=== PATIENT | female | born 1985 | race African-American/Black ===

== ENCOUNTER 2020-08-12 20:43 | Emergency (ER) | payer MEDICAID ==
[~2020-08-12] VITALS: Ht 160 cm; Wt 63.5 kg
[2020-08-12] MEDS ORDERED: MECLIZINE HCL 25 MG TABLET PO ONE (21:15)
[2020-08-12] MEDS ORDERED: MECLIZINE HCL 25 MG TABLET ONE (21:17)
[2020-08-12 21:55] VITALS: BP 130/75
== END 2020-08-12 21:57 | disposition home or self-care (01) ==
LOC: ER 20:43
DX: R42 Dizziness and giddiness (principal)
CPT/HCPCS: A4663; J8597

== ENCOUNTER 2022-02-05 02:48 | Emergency (ER) | payer MEDICAID ==
[~2022-02-05] VITALS: Ht 160 cm; Wt 65.8 kg
--- NOTE | 2022-02-05 03:00 | NUR ---
pt ambualted to room 5 c/o cough and h/a for 7 days.
--- NOTE | 2022-02-05 03:03 | NUR ---
Dr. Carvajal at bedside for MSE.
[2022-02-05] MEDS ORDERED: GUAIFENESIN/CODEINE 5 ML LIQUID UDC PO ONE (03:15)
[2022-02-05] MEDS ORDERED: GUAIFENESIN/CODEINE 5 ML LIQUID UDC ONE (03:16)
[2022-02-05] MEDS ORDERED: AZIT250T PO ×2 (03:36→03:44)
[2022-02-05] MEDS ORDERED: PRED20TA PO ×3 (03:36→03:48)
[2022-02-05] MEDS ORDERED: ZOLP5TAB2 PO ×3 (03:36→03:48)
[2022-02-05] MEDS ORDERED: CODE10LI PO ×3 (03:36→03:48)
[2022-02-05] MEDS ORDERED: AZIT250T13 PO (03:48)
[2022-02-05 03:59] VITALS: BP 133/80
--- NOTE | 2022-02-05 03:59 | NUR ---
Patient discharged to home in stable condition. Written and verbal after care instructions given. Patient verbalizes understanding of instructions. Stressed follow up or return to ER for worsening s/s.
== END 2022-02-05 04:00 | disposition home or self-care (01) ==
LOC: ER 02:55
DX: J02.9 Acute pharyngitis, unspecified (principal); J40 Bronchitis, not specified as acute or chronic; Z20.822 Contact with and (suspected) exposure to COVID-19; G47.00 Insomnia, unspecified; R03.0 Elevated blood-pressure reading, without diagnosis of hypertension
CPT/HCPCS: 71045; A4663

== ENCOUNTER 2024-10-26 06:54 | Emergency (ER) | payer MEDICAID ==
[~2024-10-26] VITALS: Ht 160 cm; Wt 63.5 kg
[~2024-10-26 06:54] MED LIST: AZIT250T13 PO; CODE10LI PO; PRED20TA PO; ZOLP5TAB2 PO
[2024-10-26] MEDS ORDERED: METOCLOPRAMIDE HCL 10 MG/2 ML VIAL ONE (07:47)
[2024-10-26] MEDS ORDERED: MORPHINE SULFATE 2 MG/1 ML DISP.SYRIN ONE (07:48)
[2024-10-26] MEDS: METOCLOPRAMIDE HCL 10 MG/2 ML VIAL IV ONE (07:58)
[2024-10-26] MEDS: IV NORMAL SALINE 1000 ML BAG IV ONE (07:58)
[2024-10-26] MEDS: MORPHINE SULFATE 2 MG/1 ML DISP.SYRIN IV ONE (07:58)
[2024-10-26 08:01] LABS: CALCIUM 7.9 mg/dL (8.5-10.1); CREATININE 0.7 mg/dL (0.6-1.3)
[2024-10-26 08:06] LABS: BASOPHILS % (AUTO) 0.4 % (0.0-2.0); EOSINOPHILS % (AUTO) 0.2 % (0.0-7.0); HEMATOCRIT 35.6 % (31.2-41.9); LYMPHOCYTES # (AUTO) 0.4 K/uL (0.8-4.8); LYMPHOCYTES % (AUTO) 6.2 % (20.5-51.5); MEAN CORPUSCULAR HEMOGLOBIN 32.1 uug (24.7-32.8); MEAN CORPUSCULAR HGB CONC 34 g/dL (32.3-35.6); MEAN CORPUSCULAR VOLUME 94.8 fL (75.5-95.3); MONOCYTES # (AUTO) 0.6 K/uL (0.1-1.30); MONOCYTES % (AUTO) 10.1 % (0.0-11.0); NEUTROPHILS # (AUTO) 4.9 K/uL (1.8-8.9); NEUTROPHILS % (AUTO) 83.1 % (38.5-71.5); PLATELET COUNT (AUTO) 196 K/uL (179-408); RED BLOOD CELL COUNT(AUTO) 3.75 MIL/uL (3.63-4.92); RED CELL DISTRIBUTION WIDTH 13.2 % (12.3-17.7); WHITE BLOOD COUNT (AUTO) 5.9 K/uL (3.8-11.8)
[2024-10-26] MEDS ORDERED: METO5TAB87 PO (11:16)
[2024-10-26] MEDS ORDERED: MORP20SO PO (11:16)
[2024-10-26 11:34] VITALS: BP 115/71; O2SAT 98
== END 2024-10-26 11:43 | disposition home or self-care (01) ==
LOC: ER 06:59
DX: G43.909 Migraine, unspecified, not intractable, without status migrainosus (principal); Z20.822 Contact with and (suspected) exposure to COVID-19; Z79.52 Long term (current) use of systemic steroids
CPT/HCPCS: 99284; 96374; 71045; 96361; 96375; 87426; 87804 ×2; 80048; 85025; 36415; J2765; J2270; J7040; A4606; A4663

== ENCOUNTER 2025-08-02 20:22 | Emergency (ER) | payer MEDICAID, OTHER ==
[~2025-08-02] VITALS: Ht 160 cm; Wt 62.1 kg
[~2025-08-02 20:22] MED LIST changes: +METO5TAB87 PO; +MORP20SO PO
[2025-08-02 20:51] LABS: *BILIRUBIN,URIN 2+ (NEGATIVE); *BLOOD, URINE NEGATIVE (NEGATIVE); *CLARITY,URINE CLEAR (CLEAR); *COLOR,URINE YELLOW (YELLOW); *KETONES,URINE 1+ (NEGATIVE); *PROTEIN,URINE TRACE (NEGATIVE); *UROBILINOGEN,URINE 1.0 E.U./dl (NORMAL); LEUKOCYTE ESTERASE ,URINE NEGATIVE (NEGATIVE); NITRITE, URINE NEGATIVE (NEGATIVE); UGLUCOSE NEGATIVE (NEGATIVE)
[2025-08-02 20:52] LABS: *URINE HCG, QUAL POSITIVE (NEGATIVE)
[2025-08-02 21:02] LABS: PLATELET COUNT (AUTO) 208 K/uL (179-408); RED BLOOD CELL COUNT(AUTO) 3.87 MIL/uL (3.63-4.92); RED CELL DISTRIBUTION WIDTH 13.1 % (12.3-17.7); WHITE BLOOD COUNT (AUTO) 9.7 K/uL (3.8-11.8)
[2025-08-02] MEDS: IV NORMAL SALINE 1000 ML BAG IV ONE (21:04)
[2025-08-02] MEDS: METOCLOPRAMIDE HCL 10 MG/2 ML VIAL IV ONE (21:08)
[2025-08-02] MEDS: MORPHINE SULFATE 4 MG/1 ML DISP.SYRIN IV ONE (21:08)
[2025-08-02 21:16] LABS: ASPARTATE AMINOTRANSFERASE 17 U/L (15-37); CREATININE 0.6 mg/dL (0.6-1.3); SODIUM SERUM 142 mmol/L (136-145); TOTAL PROTEIN, SERUM 7.8 g/dL (6.4-8.2); UREA NITROGEN, BLOOD 12 mg/dL (7-18)
[2025-08-03 00:47] VITALS: BP 105/63
[2025-08-03 01:01] VITALS: BP 107/62; TEMP 97.7; O2SAT 99
== END 2025-08-03 01:01 | disposition home or self-care (01) ==
LOC: ER 20:22
DX: R10.9 Unspecified abdominal pain (principal); R10.20 Pelvic and perineal pain unspecified side; K59.00 Constipation, unspecified; Z79.52 Long term (current) use of systemic steroids
CPT/HCPCS: 36415; 76770; 83690; 84703; 85025; A4606; A4663; J2270; J2765; J7040